=== PATIENT | male | born 1995 | race Two or more races ===

== ENCOUNTER 2024-06-24 20:43 | Emergency (ER) | payer SELFPAY ==
[~2024-06-24] VITALS: Ht 149.9 cm; Wt 73.8 kg
[2024-06-24 22:06] VITALS: BP 123/76; PULSE 62; RESP 16; TEMP 98.8; O2SAT 97
== END 2024-06-25 01:23 | disposition left against medical advice (07) ==
LOC: ER 20:43
DX: H57.11 Ocular pain, right eye (principal); Z53.21 Procedure and treatment not carried out due to patient leaving prior to being seen by health care provider